=== PATIENT | male | born 1970 | race Caucasian/White ===

== ENCOUNTER 2023-08-19 03:10 | Emergency (ER) | payer OTHER, SELFPAY ==
[2023-08-19] MEDS ORDERED: Ketorolac Tromethamine 30 MG/ML VIAL ONE (03:41)
[2023-08-19] MEDS ORDERED: Ibuprofen 800 MG TAB ONE (03:47)
== END 2023-08-19 06:48 | disposition home or self-care (01) ==
LOC: NAV ERS 03:10
DX: S02.841A Fracture of lateral orbital wall, right side, initial encounter for closed fracture (principal); S02.40CA Maxillary fracture, right side, initial encounter for closed fracture; F17.200 Nicotine dependence, unspecified, uncomplicated; Y04.2XXA Assault by strike against or bumped into by another person, initial encounter
CPT/HCPCS: 70486; J1885

== ENCOUNTER 2024-08-25 13:09 | Emergency (ER) | payer OTHER ==
[2024-08-25] MEDS ORDERED: Ibuprofen 800 MG TAB ONE (13:27)
== END 2024-08-25 14:25 | disposition home or self-care (01) ==
LOC: NAV ERS 13:09
DX: S90.31XA Contusion of right foot, initial encounter (principal); I10 Essential (primary) hypertension; F17.210 Nicotine dependence, cigarettes, uncomplicated; W22.09XA Striking against other stationary object, initial encounter
CPT/HCPCS: 99283

== ENCOUNTER → 2024-10-03 | Emergency (ER) | payer OTHER | LOC: NAV ERS 16:53 | DX: S41.152A Open bite of left upper arm, initial encounter (principal); S61.552A Open bite of left wrist, initial encounter; S61.412A Laceration without foreign body of left hand, initial encounter; S51.812A Laceration without foreign body of left forearm, initial encounter; E11.9 Type 2 diabetes mellitus without complications; I10 Essential (primary) hypertension; F17.210 Nicotine dependence, cigarettes, uncomplicated; W54.0XXA Bitten by dog, initial encounter | CPT/HCPCS: 12002; 90471 ==